=== PATIENT | female | born 1960 | race Two or more races ===

== ENCOUNTER 2017-01-15 13:55 | Inpatient (IN) | payer MEDICAID ==
[~2017-01-15] VITALS: Ht 162.6 cm; Wt 65.0 kg
[2017-01-15] VITALS (9 sets, daily range): BP systolic 147–200; BP diastolic 79–97; PULSE 65–81; RESP 16–18; TEMP 97.3–99; O2SAT 96–100
--- NOTE | 2017-01-15 14:14 | PD ---
HPI Chief Complaint: Neuro Symptoms/ Deficits Time Seen by Provider: 14:01 Travel History International Travel<30 days: No Contact w/Intl Traveler<30days: No Traveled to known affect area: No History of Present Illness HPI The patient was seen and examined in the presence of the nurse. This patient is brought in with her son. He reports that he spoke with her over the phone 5 days ago and noticed that her speech was off, somewhat slurred. They are here visiting from [facility]. Some time today in the last 7 hours she had a worsening. She is now aphasic. Blood pressure 208/99. Unable to provide any history or review of systems. [facility] Social History Alcohol Use: No Tobacco Use: No Substance Use: No Allergies-Medications (Allergen,Severity, Reaction): Coded Allergies: No Known Allergies (Unverified , 01/15/17) Reported Meds & Prescriptions Reported Meds & Active Scripts Active No Active Prescriptions or Reported Medications Review of Systems ROS Limitations: Clinical Condition, Altered Mental Status, Poor Historian Physical Exam Narrative GENERAL: Well-nourished, well-developed patient with confusion and aphasia. Trinidadian speaking only, formal interpretation program used and her son is fluent in Trinidadian and Scottish at bedside. SKIN: Focused skin assessment reveals no rash and nodules. Skin is Warm and dry. HEAD: Atraumatic. Normocephalic. EYES: Pupils equal and round. No scleral icterus. No injection or drainage. ENT: No nasal bleeding or discharge. Mucous membranes pink and moist. NECK: Trachea midline. No JVD. CARDIOVASCULAR: Regular rate and rhythm. No murmur appreciated. RESPIRATORY: No accessory muscle use. Clear to auscultation. Breath sounds equal bilaterally. GASTROINTESTINAL: Abdomen soft, non-tender, nondistended. Hepatic and splenic margins not palpable. MUSCULOSKELETAL: No obvious deformities. No clubbing. No cyanosis. No edema. NEUROLOGICAL: Awake and looking around. She follows commands. No obvious cranial nerve deficits. I don't see any facial droop. She is aphasic. She moves all 4 extremities but difficult to get accurate motor strength and sensory assessments given her limited participation. PSYCHIATRIC: Appropriate mood and affect; insight and judgment seems reduced. Data Data Last Documented VS Vital Signs Date Time Temp Pulse Resp B/P Pulse Ox O2 Delivery O2 Flow Rate FiO2 01/15/17 14:00 99.0 81 18 200/97 100 Orders Electrocardiogram (4/28/17 14:07) Prothrombin Time / Inr (Pt) (01/15/17 14:07) Act Partial Throm Time (Ptt) (01/15/17 14:07) Complete Blood Count With Diff (01/15/17 14:07) Basic Metabolic Panel (Bmp) (01/15/17 14:07) Ct Brain W/O Iv Contrast(Rout) (01/15/17 14:07) Ecg Monitoring (01/15/17 14:07) Iv Access Insert/Monitor (01/15/17 14:07) Oximetry (01/15/17 14:07) Blood Glucose (01/15/17 14:07) Labetalol Inj (Trandate Inj) (01/15/17 14:45) Labs Laboratory Tests Test 01/15/17 14:15 White Blood Count 12.8 TH/MM3 Red Blood Count 5.52 MIL/MM3 Hemoglobin 15.6 GM/DL Hematocrit 48.6 % Mean Corpuscular Volume 87.9 FL Mean Corpuscular Hemoglobin 28.2 PG Mean Corpuscular Hemoglobin 32.1 % Concent Red Cell Distribution Width 14.0 % Platelet Count 358 TH/MM3 Mean Platelet Volume 7.9 FL Neutrophils (%) (Auto) 74.5 % Lymphocytes (%) (Auto) 19.0 % Monocytes (%) (Auto) 5.6 % Eosinophils (%) (Auto) 0.4 % Basophils (%) (Auto) 0.5 % Neutrophils # (Auto) 9.5 TH/MM3 Lymphocytes # (Auto) 2.4 TH/MM3 Monocytes # (Auto) 0.7 TH/MM3 Eosinophils # (Auto) 0.1 TH/MM3 Basophils # (Auto) 0.1 TH/MM3 CBC Comment DIFF FINAL Differential Comment Prothrombin Time 10.8 SEC Prothromb Time International 1.0 RATIO Ratio Activated Partial 28.5 SEC Thromboplast Time Sodium Level 140 MEQ/L Potassium Level 3.4 MEQ/L Chloride Level 104 MEQ/L Carbon Dioxide Level 25.8 MEQ/L Anion Gap 10 MEQ/L Blood Urea Nitrogen 5 MG/DL Creatinine 0.76 MG/DL Estimat Glomerular Filtration 78 ML/MIN Rate Random Glucose 101 MG/DL Calcium Level 9.3 MG/DL MDM Medical Decision Making Medical Screen Exam Complete: Yes Emergency Medical Condition: Yes Medical Record Reviewed: Yes Differential Diagnosis Ischemic stroke, intracranial hemorrhage, hypertensive emergency Narrative Course I have reviewed the patient's electronic medical record. Patient is critically ill with extreme hypertension and signs and symptoms suggesting acute/subacute stroke. Patient is not a stroke alert, there is no accurate timeframe here. Seems like symptoms started 5 days ago. Blood pressure is 208/99 Will use permissive hypertension at this time unless the systolic pressure exceeds 220, which time will be treated. I am concerned about ischemic stroke primarily. Brain CT shows large area of subacute ischemic stroke in the territory of the left MCA, suggesting embolic phenomenon. I reviewed with radiologist Dr. Mccabe I reviewed her EKG which shows sinus tachycardia without ectopy Extended cardiac monitoring reveals sinus tachycardia without ectopy CBC is normal Metabolic profile is normal Coagulation studies are normal Given that this looks now subacute in nature, I gave her 10 mg IV labetalol I reviewed with hospitalist who has admitted the patient Critical Care Narrative Aggregate critical care time was 40 minutes. Time to perform other separately billable procedures was not included in the critical care time. My time did not include minutes spent treating any other patients simultaneously or on activities that did not directly contribute to the patient's treatment. The services I provided to this patient were to treat and/or prevent clinically significant deterioration that could result in: Permanent neurologic deficit, brain stem herniation, cardiopulmonary arrest I provided critical care services requiring my management, as noted below: Chart data review, documentation time, medication orders and management, vital sign assessments/reviewing monitor data, ordering and reviewing lab tests, ordering and interpreting/reviewing x-rays and diagnostic studies, care of the patient and discussion of the patient with the admitting physicians. Diagnosis Primary Impression: Ischemic cerebrovascular accident (CVA) of frontal lobe Additional Impression: Hypertensive urgency Admitting Information Admitting Physician Requests: Admit Scripts No Active Prescriptions or Reported Meds Parrish Perez MD Jan 15, 2017 14:14
[2017-01-15 14:26] LABS: AUTOMATED NEUTROPHIL # 9.5 TH/MM3 (1.8-7.7); BASOPHIL # 0.1 TH/MM3 (0-0.2); BASOPHIL % 0.5 % (0.0-2.0); EOSINOPHIL # 0.1 TH/MM3 (0-0.4); EOSINOPHIL % 0.4 % (0.0-4.0); HEMATOCRIT 48.6 % (35.0-46.0); HEMO FLAGS DIFF FINAL; LYMPHOCYTE # 2.4 TH/MM3 (1.0-4.8); MEAN CELL VOLUME 87.9 FL (80.0-100.0); MEAN CORPUSCULAR HEMOGLOBIN 28.2 PG (27.0-34.0); MEAN CORPUSCULAR HGB CONC 32.1 % (32.0-36.0); MONO % 5.6 % (0.0-8.0); NEUT % 74.5 % (16.0-70.0); PLATELET COUNT 358 TH/MM3 (150-450); RED BLOOD COUNT 5.52 MIL/MM3 (4.00-5.30); WHITE BLOOD COUNT 12.8 TH/MM3 (4.0-11.0)
[2017-01-15 14:36] LABS: POTASSIUM 3.4 MEQ/L (3.5-5.1)
[2017-01-15 14:39] LABS: BICARBONATE 25.8 MEQ/L (21.0-32.0)
[2017-01-15 14:42] LABS: APTT (PATIENT) 28.5 SEC (24.3-30.1); PROTHROMBIN TIME - PATIENT 10.8 SEC (9.8-11.6)
--- NOTE | 2017-01-15 14:44 | RADHPO ---
EXAM DATE/TIME: 01/15/2017 14:16 [facility] COMPARISON: No previous studies available for comparison. INDICATIONS : Cerebrovascular accident. Aphasic. Right arm weakness. RADIATION DOSE: 65.22 CTDIvol (mGy) MEDICAL HISTORY : Non-responsive. SURGICAL HISTORY : Non-responsive. ENCOUNTER: Initial ACUITY: 4 - 6 days PAIN SCALE: Non-responsive LOCATION: cranial TECHNIQUE: Multiple contiguous axial images were obtained of the head. Using automated exposure control and adj ustment of the mA and/or kV according to patient size, radiation dose was kept as low as reasonably a chievable to obtain optimal diagnostic quality images. FINDINGS: CEREBRUM: The ventricles are normal for age. Scattered areas of encephalomalacia in the left MCA territory sug gesting prior left MCA embolic event. No midline shift. No extra-axial fluid collections are seen. POSTERIOR FOSSA: The cerebellum and brainstem are intact. The 4th ventricle is midline. The cerebellopontine angle i s unremarkable. EXTRACRANIAL: The visualized portion of the orbits is intact. SKULL: The calvaria is intact. No evidence of skull fracture. CONCLUSION: 1. Scattered areas of encephalomalacia in the left cerebral hemisphere characteristic of a probable s ubacute or chronic embolic event to the left MCA territory. 2. No acute intracranial hemorrhage or midline shift. 3. Results were called to Dr. Perez in the ED at the time of this dictation Filiberto Mccabe MD on January 15, 2017 at 14:32 Board Certified Radiologist. This report was verified electronically.
[2017-01-15] MEDS ORDERED: LABETALOL HCL 100 MG/20 ML VIAL IV PUSH ONE (14:45)
[2017-01-15] MEDS ORDERED: NALOXONE HCL 0.4 MG/ML AMP IV PRN (15:15)
[2017-01-15] MEDS ORDERED: SODIUM CHLORIDE 0.9% FLUSH 10 ML FLUSH IV FLUSH PRN ×2 (15:15→18:45)
[2017-01-15] MEDS ORDERED: ASPIRIN 325 MG TAB PO ONE (15:30)
[2017-01-15 15:35] LABS: ALT (GPT) 34 U/L (10-53); AST (GOT) 28 U/L (15-37)
[2017-01-15 15:36] LABS: INDIRECT BILIRUBIN 0.4 MG/DL (0.0-0.8); TOTAL BILIRUBIN ADULT 0.5 MG/DL (0.2-1.0)
[2017-01-15 15:38] LABS: ALKALINE PHOSPHATASE 106 U/L (45-117)
[2017-01-15] MEDS ORDERED: POTASSIUM CHLOR 20 MEQ PREMIX 100 ML IV ONE (16:00)
--- NOTE | 2017-01-15 16:00 | HHI.HP ---
[facility] Service [facility] Primary Care Physician Non-Staff Admission Diagnosis ischemic CVA,hypertensive urgency Diagnoses: Chief Complaint: Altered speech Travel History International Travel<30 Days: No Contact w/Intl Traveler <30 Da: No Traveled to Known Affected Are: No History of Present Illness The patient is a 56-year-old female who was brought into the hospital by her family for concerns about altered speech. The patient is visiting from the [facility] for Jeep week. Over the past 5 days the patient has had changes of behavior per the patient's family. It wasn't until this morning that it was obvious that the patient's speech was altered. The family states that the patient was saying weird things and has been having trouble saying what she was meaning to say. The ambulance came by this morning and the patient was refusing treatment. The patient's family states that the patient does not like to be checked up regularly by doctors. The patient was resting in bed but was not very conversant. She would say 1 or 2 words at a time. She did not seem to indicate that she was in any pain. The patient's daughter who was at the bedside was unable to elaborate on the patient's symptoms for the past few days. She does say that other family members noticed the patient acting strangely but was unable to be more specific about that. The patient did seem to indicate she was itching and had a burning sensation in her right hand. Review of Systems ROS Limitations: Clinical Condition, Altered Mental Status, Language Barrier, Speech Impaired, Poor Historian Except as stated in HPI: all other systems reviewed are Neg Past Family Social History Past Medical History Hypertension Past Surgical History Denies Allergies: Coded Allergies: No Known Allergies (Unverified , 01/15/17) Active Ordered Medications Current Medications Medications (Trade) Dose Ordered Sig/Shamika Route Start Time Stop Time Status Last Admin (NS 1000 ml Inj) 1,000 ml @ 75 mls/hr [id number] IV 01/15/17 15:14 (NS Flush) 2 ml UNSCH PRN IV FLUSH 01/15/17 15:15 (NS Flush) 2 ml BID IV FLUSH 01/15/17 21:00 (Tylenol) 650 mg Q4H PRN PO 01/15/17 15:15 (Tylenol) 650 mg Q6H PRN PO 01/15/17 15:15 Naloxone HCl 0.4 mg 0.4 mg UNSCH PRN IV 01/15/17 15:15 (KCl 20 Meq Premix Inj) 100 ml @ 50 mls/hr BOLUS ONCE IV 01/15/17 16:00 01/15/17 17:59 (Ecotrin Ec) 81 mg DAILY PO 01/16/17 09:00 Family History Hypertension Hyperlipidemia Diabetes CAD Cancer Social History The patient smokes 1 pack every day and a half. Her family says she uses recreational cocaine. Physical Exam Vital Signs Vital Signs Date Time Temp Pulse Resp B/P Pulse Ox O2 Delivery O2 Flow Rate FiO2 01/15/17 15:28 65 16 159/84 100 01/15/17 15:28 100 01/15/17 15:10 185/94 01/15/17 14:55 172/95 01/15/17 14:00 99.0 81 18 200/97 100 Physical Exam GENERAL: Well-nourished, well-developed patient with confusion and aphasia. Khmer speaking only. SKIN: Focused skin assessment reveals no rash and nodules. Skin is warm and dry. HEAD: Atraumatic. Normocephalic. EYES: Pupils equal and round. No scleral icterus. No injection or drainage. ENT: No nasal bleeding or discharge. Mucous membranes pink and moist. NECK: Trachea midline. No JVD. CARDIOVASCULAR: Regular rate and rhythm. No murmur appreciated. RESPIRATORY: No accessory muscle use. Clear to auscultation. Breath sounds equal bilaterally. GASTROINTESTINAL: Abdomen soft, non-tender, nondistended. Hepatic and splenic margins not palpable. MUSCULOSKELETAL: No obvious deformities. No clubbing. No cyanosis. No edema. NEUROLOGICAL: Awake and looking around. She follows some commands. No obvious cranial nerve deficits. No facial droop. She is aphasic. RUE 2/5 strength, other extremities 5/5 strength. PSYCHIATRIC: Flattened affect. Laboratory Laboratory Tests Test 01/15/17 01/15/17 14:15 15:15 White Blood Count 12.8 Red Blood Count 5.52 Hemoglobin 15.6 Hematocrit 48.6 Mean Corpuscular Volume 87.9 Mean Corpuscular Hemoglobin 28.2 Mean Corpuscular Hemoglobin 32.1 Concent Red Cell Distribution Width 14.0 Platelet Count 358 Mean Platelet Volume 7.9 Neutrophils (%) (Auto) 74.5 Lymphocytes (%) (Auto) 19.0 Monocytes (%) (Auto) 5.6 Eosinophils (%) (Auto) 0.4 Basophils (%) (Auto) 0.5 Neutrophils # (Auto) 9.5 Lymphocytes # (Auto) 2.4 Monocytes # (Auto) 0.7 Eosinophils # (Auto) 0.1 Basophils # (Auto) 0.1 CBC Comment DIFF FINAL Differential Comment Prothrombin Time 10.8 Prothromb Time International 1.0 Ratio Activated Partial 28.5 Thromboplast Time Sodium Level 140 Potassium Level 3.4 Chloride Level 104 Carbon Dioxide Level 25.8 Anion Gap 10 Blood Urea Nitrogen 5 Creatinine 0.76 Estimat Glomerular Filtration 78 Rate Random Glucose 101 Calcium Level 9.3 Total Bilirubin 0.5 Direct Bilirubin 0.1 Indirect Bilirubin 0.4 Aspartate Amino Transf 28 (AST/SGOT) Alanine Aminotransferase 34 (ALT/SGPT) Alkaline Phosphatase 106 Total Protein 8.2 Albumin 4.0 Thyroid Stimulating Hormone 0.488 3rd Gen Result Diagram: 01/15/17 1415 01/15/17 1415 Imaging Last Impressions Head CT 01/15/17 1407 Signed Impressions: Service Date/Time: Sunday, January 15, 2017 14:16 - CONCLUSION: 1. Scattered areas of encephalomalacia in the left cerebral hemisphere characteristic of a probable subacute or chronic embolic event to the left MCA territory. 2. No acute intracranial hemorrhage or midline shift. 3. Results were called to Dr. Perez in the ED at the time of this dictation Filiberto Mccabe MD Assessment and Plan Assessment and Plan Acute CVA/ Hypertensive Emergency The patient presented to the hospital with speech difficulties and right upper extremity weakness. CT scan in the emergency department showed: Scattered areas of encephalomalacia in the left cerebral hemisphere characteristic of a probable subacute or chronic embolic event to the left MCA territory; No acute intracranial hemorrhage or midline shift. The pt's SBP was noted to be 200 in the ED. She smokes cigarettes and does use recreational cocaine per family. - Bedrest, IV fluids. - Permissive hypertension for now. Vasotec as needed. - Smoking cessation instruction. - Echo, carotid Doppler, Holter monitor pending. - Neurology consult requested. - Check B12, ammonia, lipid profile and hemoglobin A1c. - PT/ OT/ ST. NPO for now. - case management consult. - start aspirin. Leukocytosis May be a stress reaction secondary to above. - Check a UA and chest x-ray to rule out infection. - Follow CBC. Hypokalemia Likely secondary to decreased by mouth intake. - Replete and monitor. PPx: SCDs. Code Status Full. Discussed Condition With Dr. Perez Physician Certification 2 Midnight Certification Type: Admission for Inpatient Services Order for Inpatient Services The services are ordered in accordance with Medicare regulations or non- Medicare payer requirements, as applicable. In the case of services not specified as inpatient-only, they are appropriately provided as inpatient services in accordance with the 2-midnight benchmark. Estimated LOS (days): 2 days is the estimated time the patient will need to remain in the hospital, assuming treatment plan goals are met and no additional complications. Post-Hospital Plan: Not yet determined Mustapha Paul DO Jan 15, 2017 16:00
[2017-01-15 16:47] LABS: GLUCOSE,URINE NEG (NEG); KETONE, URINE TRACE mg/dL (NEG); NITRITE,URINE NEG (NEG); PH, URINE 5.5 (5.0-8.5)
[2017-01-15 16:52] LABS: BLOOD, URINE MOD (NEG); METHOD OF COLLECTION CLEAN CATCH; URINE COLOR STRAW (YELLW/STRAW)
[2017-01-15 16:53] LABS: COMMENT (UR) CULT NOT INDICATED; CULTURE IF INDICATED CULT NOT INDICATED; SQUAMOUS EPITHELIAL CELL URINE 0-5 /hpf (0-5); WBC, URINE 0-2 /hpf (0-5)
[2017-01-15 16:55] LABS: AMPHETAMINE, URINE NEG (NEG); BARBITURATES, URINE NEG (NEG); COCAINE, URINE NEG (NEG)
--- NOTE | 2017-01-15 16:56 | RADHPO ---
EXAM DATE/TIME: 01/15/2017 16:50 [facility] COMPARISON: No previous studies available for comparison. INDICATIONS : Shortness of breath. MEDICAL HISTORY : None. SURGICAL HISTORY : None. ENCOUNTER: Initial ACUITY: 4 - 6 days PAIN SCORE: 1/10 LOCATION: Bilateral chest FINDINGS: A single view of the chest demonstrates the lungs to be symmetrically aerated without evidence of mas s, infiltrate or effusion. The cardiomediastinal contours are unremarkable. Osseous structures are intact. CONCLUSION: No acute disease. Mustapha Schmidt MD on January 15, 2017 at 16:53 Board Certified Radiologist. This report was verified electronically.
[2017-01-15] MEDS: SODIUM CHLOR 0.9% 1000 ML INJ 1,000 ML IV SCH (17:11)
--- NOTE | 2017-01-15 17:46 | RADHPO ---
EXAM DATE/TIME: 01/15/2017 17:12 [facility] COMPARISON: No previous studies available for comparison. INDICATIONS : Cerebrovascular accident. MEDICAL HISTORY : Hypertension. CVA. SURGICAL HISTORY : None. ENCOUNTER: Initial ACUITY: 4-6 days PAIN SCORE: 4/10 LOCATION: Bilateral neck PEAK SYSTOLIC VELOCITIES (cm/sec): ICA/CCA RATIO: Right: 1.5 Left: 0.7 ICA: Right: 114 Left: 57 CCA: Right: 77 Left: 79 ECA: Right: 63 Left: 66 VERTEBRAL: Right: 44 antegrade Left: 50 antegrade Elevated flow velocities and ICA/CCA ratios have been found to correlate with increased degrees of vessel stenosis, calculated as percentage of diameter relative to a normal segment of distal ICA/CCA FINDINGS: Ultrasound of the carotid arteries was performed bilaterally using real-time Doppler and color Dopple r imaging. Examination of the right carotid artery demonstrates mild fibrous plaque within the bifurcation. No w aveform abnormalities are identified and no spectral broadening is seen. Examination of the left phipps tid artery demonstrates mild fibrous plaque within the bulb. No waveform abnormalities are identified and no spectral broadening is seen. There is antegrade flow in both vertebral arteries. CONCLUSION: No evidence of hemodynamically significant lesion. Js Cabrera MD on January 15, 2017 at 17:43 Board Certified Radiologist. This report was verified electronically.
[2017-01-15 18:16] LABS: HDL CHOLESTEROL 49.1 MG/DL (40.0-60.0); LDL CHOLESTEROL 118 MG/DL (0-99)
[2017-01-15] MEDS ORDERED: DEXTROSE 50% IN WATER 50 ML VIAL(D50) IV PUSH PRN (18:45)
[2017-01-15] MEDS ORDERED: GLUCAGON 1 MG/ML VIAL IM/SQ PRN (18:45)
[2017-01-15] MEDS: SODIUM CHLORIDE 0.9% FLUSH 10 ML FLUSH IV FLUSH SCH (20:00)
[2017-01-15] MEDS: ASPIRIN 325 MG TAB PO SCH (20:00)
[2017-01-15] MEDS: ATORVASTATIN 10 MG TAB PO SCH (20:00)
[2017-01-15] MEDS: INSULIN ASPART SUPPLEMENTAL SCALE SQ SCH (20:07)
[2017-01-15] MEDS ORDERED: SODIUM CHLORIDE 0.9% FLUSH 10 ML FLUSH IV FLUSH SCH (21:00)
--- NOTE | 2017-01-15 21:17 | MB ---
cc: HERLINDA MICHELLE DATE OF CONSULTATION 01/15/17 REASON FOR CONSULTATION Stroke HISTORY OF PRESENT ILLNESS Ms. Gordon is a 56-year-old female previously in good health until Wednesday when she had developed difficulty getting words out which progressed and she therefore came to the emergency room. She has been weak on the right side as well. There has been no loss of consciousness. PAST MEDICAL HISTORY Hypertension MEDICATIONS At home none. ALLERGIES None known. NEUROLOGIC EXAMINATION VITAL SIGNS: Blood pressure 147/92, pulse 67, respiratory rate is 18, temperature 97 degrees. Higher cortical function - primary language is Mozambican. This is done through her friend. She is not able to communicate even in Mozambican. She cannot get words out. 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 On motor exam, she has mild weakness of the right arm and right leg rated at 4/5 proximally and distally. There was normal strength on the left. Reflexes are 2+ symmetric. There is no Babinski present. IMAGING STUDIES CT of the brain is reviewed showing multiple areas of low density in the left cerebral hemisphere suggesting stroke. There is no mass effect. No evidence of any hemorrhage. Carotid ultrasound is within normal limits with no significant stenosis. LABORATORY DATA White count 12,800, hemoglobin 15.6, hematocrit 48%, platelets are 358,000. Sodium is 140, potassium 3.4, chloride 104, CO2 25.8, BUN is five, creatinine 0.76, GFR 78, glucose is 101, LDL 118, HDL 49.1 triglycerides 144. Tox screen negative. CARDIOLOGY STUDIES Her EKG shows a normal sinus rhythm. IMPRESSION Several left hemisphere strokes with expressive aphasia and right hemiparesis. RECOMMENDATIONS Would recommend placing the patient on aspirin 325 mg daily. We will obtain further evaluation with an MRI MRA of the brain, echocardiogram, also suggest statin given the elevated LDL. Recommend rehab medicine consult as well. Monitor the telemetry to rule out atrial fibrillation. MD JONNY Darnell/ /6:44 PM /9:04 PM
[2017-01-16] VITALS (8 sets, daily range): BP systolic 141–196; BP diastolic 75–94; PULSE 59–74; RESP 14–20; TEMP 96.9–98.9; O2SAT 95–99
[2017-01-16] MEDS: INSULIN ASPART SUPPLEMENTAL SCALE SQ SCH ×4 (06:10→20:40)
[2017-01-16] MEDS: SODIUM CHLOR 0.9% 1000 ML INJ 1,000 ML IV SCH (06:10)
[2017-01-16] MEDS: ACETAMINOPHEN 325 MG TAB PO PRN ×2 (06:44→20:23)
[2017-01-16 07:26] LABS: AUTOMATED NEUTROPHIL # 6.2 TH/MM3 (1.8-7.7); BASOPHIL # 0.1 TH/MM3 (0-0.2); EOSINOPHIL # 0.1 TH/MM3 (0-0.4); HEMATOCRIT 43.5 % (35.0-46.0); HEMO FLAGS DIFF FINAL; LYMPH % 23.3 % (9.0-44.0); LYMPHOCYTE # 2.2 TH/MM3 (1.0-4.8); MEAN CELL VOLUME 88.4 FL (80.0-100.0); MEAN CORPUSCULAR HEMOGLOBIN 29.3 PG (27.0-34.0); MEAN CORPUSCULAR HGB CONC 33.2 % (32.0-36.0); MONO % 7.6 % (0.0-8.0); NEUT % 67.1 % (16.0-70.0); PLATELET COUNT 305 TH/MM3 (150-450); RED BLOOD COUNT 4.92 MIL/MM3 (4.00-5.30); WHITE BLOOD COUNT 9.3 TH/MM3 (4.0-11.0)
[2017-01-16 07:42] LABS: POTASSIUM 3.5 MEQ/L (3.5-5.1)
[2017-01-16 07:48] LABS: BICARBONATE 25.1 MEQ/L (21.0-32.0); MAGNESIUM 2.3 MG/DL (1.5-2.5)
[2017-01-16] MEDS: ASPIRIN 325 MG TAB PO SCH (08:51)
[2017-01-16] MEDS: SODIUM CHLORIDE 0.9% FLUSH 10 ML FLUSH IV FLUSH SCH ×2 (08:52→20:40)
[2017-01-16] MEDS ORDERED: ASPIRIN EC 81 MG TABEC PO SCH (09:00)
[2017-01-16] MEDS ORDERED: POTASSIUM CHLORIDE 25 MEQ EFFERVESCENT TAB PO ONE (09:30)
[2017-01-16] MEDS ORDERED: SODIUM CHLOR 0.45% 1000 ML INJ 1,000 ML IV SCH (09:30)
--- NOTE | 2017-01-16 09:43 | HHI.PR ---
Subjective Remarks The patient did not complain of any pain. She was able to move her right arm better this morning. She denied any headache. She denied any numbness or tingling. Family was at the bedside. Their questions were answered. Case management was also present. Objective Vitals Vital Signs Date Time Temp Pulse Resp B/P Pulse Ox O2 Delivery O2 Flow Rate FiO2 01/16/17 08:00 97.4 59 17 162/93 97 01/16/17 04:11 98.9 70 18 141/79 99 01/16/17 00:28 98.8 68 20 147/80 98 01/15/17 20:42 98.9 73 16 148/79 96 01/15/17 20:03 96 21 01/15/17 19:58 74 01/15/17 16:57 97.3 67 18 147/92 98 01/15/17 16:00 65 01/15/17 15:28 65 16 159/84 100 01/15/17 15:28 100 01/15/17 15:10 185/94 01/15/17 14:55 172/95 01/15/17 14:00 99.0 81 18 200/97 100 I/O 01/15/17 01/15/17 01/15/17 01/16/17 01/16/17 01/16/17 07:00 15:00 23:00 07:00 15:00 23:00 Intake Total 427 ml 610 ml Output Total 200 ml Balance 427 ml 410 ml Intake IV Total 427 ml 610 ml Output Urine Total 200 ml Result Diagram: 01/16/17 0609 01/16/17 0609 Imaging Last Impressions Head CT 01/15/17 1407 Signed Impressions: Service Date/Time: Sunday, January 15, 2017 14:16 - CONCLUSION: 1. Scattered areas of encephalomalacia in the left cerebral hemisphere characteristic of a probable subacute or chronic embolic event to the left MCA territory. 2. No acute intracranial hemorrhage or midline shift. 3. Results were called to Dr. Perez in the ED at the time of this dictation Filiberto Mccabe MD Chest X-Ray 01/15/17 0000 Signed Impressions: Service Date/Time: Sunday, January 15, 2017 16:50 - CONCLUSION: No acute disease. Mustapha Schmidt MD Carotid Artery Ultrasound 01/15/17 0000 Signed Impressions: Service Date/Time: Sunday, January 15, 2017 17:12 - CONCLUSION: No evidence of hemodynamically significant lesion. Js Cabrera MD Objective Remarks GENERAL: Well-nourished, well-developed patient with confusion and aphasia. [place] speaking only. SKIN: Focused skin assessment reveals no rash and nodules. Skin is warm and dry. HEAD: Atraumatic. Normocephalic. EYES: Pupils equal and round. No scleral icterus. No injection or drainage. ENT: No nasal bleeding or discharge. Mucous membranes pink and moist. NECK: Trachea midline. No JVD. CARDIOVASCULAR: Regular rate and rhythm. No murmur appreciated. RESPIRATORY: No accessory muscle use. Clear to auscultation. Breath sounds equal bilaterally. GASTROINTESTINAL: Abdomen soft, non-tender, nondistended. Hepatic and splenic margins not palpable. MUSCULOSKELETAL: No obvious deformities. No clubbing. No cyanosis. No edema. NEUROLOGICAL: Awake and looking around. She follows some commands. No obvious cranial nerve deficits. No facial droop. She is aphasic. RUE 4/5 strength, other extremities 5/5 strength. PSYCHIATRIC: Flattened affect. Medications and IVs Current Medications Medications (Trade) Dose Ordered Sig/Shamika Route Start Time Stop Time Status Last Admin (Tylenol) 650 mg Q4H PRN PO 01/15/17 15:15 (Tylenol) 650 mg Q6H PRN PO 01/15/17 15:15 01/16/17 06:44 (Narcan Inj) 0.4 mg UNSCH PRN IV 01/15/17 15:15 (NS Flush) 2 ml BID IV FLUSH 01/15/17 21:00 (NS Flush) 2 ml UNSCH PRN IV FLUSH 01/15/17 18:45 (Aspirin) 325 mg DAILY PO 01/15/17 19:00 01/16/17 08:51 (Lipitor) 10 mg HS PO 01/15/17 21:00 01/15/17 20:00 (D50w (Vial) Inj) 25 ml UNSCH PRN IV PUSH 01/15/17 18:45 Glucagon 1 mg 1 mg UNSCH PRN IM/SQ 01/15/17 18:45 (1/2 NS 1000 ml Inj) 1,000 ml @ 75 mls/hr [id number] IV 01/16/17 09:30 01/16/17 22:49 A/P Assessment and Plan Acute CVA/ Hypertensive Emergency The patient presented to the hospital with speech difficulties and right upper extremity weakness. CT scan in the emergency department showed: Scattered areas of encephalomalacia in the left cerebral hemisphere characteristic of a probable subacute or chronic embolic event to the left MCA territory; No acute intracranial hemorrhage or midline shift. The pt's SBP was noted to be 200 in the ED. She smokes cigarettes and does use recreational cocaine per family. LDL 118. Carotid US unremarkable. Neurology consult appreciated. - Bedrest, IV fluids. - Permissive hypertension for now. Vasotec as needed. - Smoking cessation instruction. - Echo, Holter monitor pending. - Check B12 and hemoglobin A1c. - PT/ OT/ ST. - case management consult. - start aspirin and statin. - MRIs per neurology. - rehab medicine consult. Leukocytosis May be a stress reaction secondary to above. CXR and UA unremarkable. Resolved. - Follow CBC as needed. Hypokalemia Likely secondary to decreased by mouth intake. - Replete and monitor. Hypernatremia Sodium level increased. - change fluids to 1/2 normal saline and monitor. PPx: SCDs. Discharge Planning Awaiting clinical improvement. Mustapha Paul DO Jan 16, 2017 09:43
--- NOTE | 2017-01-16 12:53 | RADHPO ---
EXAM DATE/TIME: 01/16/2017 12:23 [facility] COMPARISON: MRI BRAIN W/O CONTRAST, January 16, 2017, 12:23. CT BRAIN W/O CONTRAST, January 15, 2017, 14:16. INDICATIONS : CVA. MEDICAL HISTORY : Hypertension. SURGICAL HISTORY : None. ENCOUNTER: Initial ACUITY: 1 day PAIN SCORE: 0/10 LOCATION: cranial Please note a normal MRA of the brain does not entirely exclude the possibility of a small aneurysm, nor the possibility of distal intracranial vessel disease. TECHNIQUE: 3D time of flight MRA was performed. Source images, multiplanar STS MIP, and 3D volume MIP reconstru ctions were reviewed. FINDINGS: The left middle cerebral artery is occluded distal to the M1 segment proximal to the bifurcation. A f etal right posterior cerebral artery is noted. The vertebral arteries, basilar arteries, posterior ce rebral arteries, superior cerebellar arteries, internal carotid arteries, anterior cerebral arteries and right middle cerebral artery are widely patent. CONCLUSION: 1. Left MCA occlusion. Rich Esquivel MD on January 16, 2017 at 12:49 Board Certified Radiologist. This report was verified electronically.
--- NOTE | 2017-01-16 12:54 | RADHPO ---
EXAM DATE/TIME: 01/16/2017 12:23 [facility] COMPARISON: MRA BRAIN W/O CONTRAST, January 16, 2017, 12:23. CT BRAIN W/O CONTRAST, January 15, 2017, 14:16. INDICATIONS : CVA. MEDICAL HISTORY : Hypertension. SURGICAL HISTORY : None. ENCOUNTER: Initial ACUITY: 1 day PAIN SCORE: 0/10 LOCATION: cranial TECHNIQUE: Multiplanar, multisequence MRI of the brain was performed without contrast. FINDINGS: There is a large area of restricted diffusion involving the left frontal, parietal, occipital and tem poral regions consistent with acute to subacute left MCA territory infarct. There is cytotoxic edema. No midline shift identified. No hemorrhage. CONCLUSION: 1. Evolving left as noted above. No hemorrhage or midline shift appreciated. Rich Esquivel MD on January 16, 2017 at 12:51 Board Certified Radiologist. This report was verified electronically.
--- NOTE | 2017-01-16 19:26 | EKG ---
Date Performed: 01/15/2017 Time Performed: 14:42:26 PTAGE: 56 years EKG: Sinus rhythm Normal ECG NO PREVIOUS TRACING DOCTOR: Lotus Smith Interpretating Date/Time 01/16/2017 19:25:19
[2017-01-16] MEDS: ATORVASTATIN 10 MG TAB PO SCH (20:22)
--- NOTE | 2017-01-16 20:36 | HHI.PR ---
Review/Management Diagnosis left MCA stroke increase LDL Plan continue asa monitor cardiac telemetry to r/o afib. check echocardiogram hypercoagulable state PT/OT/speech therapy Diagnosis/Plan: Subjective Subjective Comments No acute events reported speech may be slightly improved Active Medications Current Medications Medications (Trade) Dose Ordered Sig/Shamika Route Start Time Stop Time Status Last Admin (Tylenol) 650 mg Q4H PRN PO 01/15/17 15:15 01/16/17 20:23 (Tylenol) 650 mg Q6H PRN PO 01/15/17 15:15 01/16/17 06:44 (Narcan Inj) 0.4 mg UNSCH PRN IV 01/15/17 15:15 (NS Flush) 2 ml BID IV FLUSH 01/15/17 21:00 (NS Flush) 2 ml UNSCH PRN IV FLUSH 01/15/17 18:45 (Aspirin) 325 mg DAILY PO 01/15/17 19:00 01/16/17 08:51 (Lipitor) 10 mg HS PO 01/15/17 21:00 01/16/17 20:22 (D50w (Vial) Inj) 25 ml UNSCH PRN IV PUSH 01/15/17 18:45 Glucagon 1 mg 1 mg UNSCH PRN IM/SQ 01/15/17 18:45 (1/2 NS 1000 ml Inj) 1,000 ml @ 75 mls/hr [id number] IV 01/16/17 09:30 01/16/17 22:49 01/16/17 09:30 Allergies Allergies Coded Allergies No Known Allergies (Unverified01/15/17) Exam I&O / VS 01/15/17 01/15/17 01/16/17 15:00 23:00 07:00 Intake Total 427 ml 610 ml Output Total 200 ml Balance 427 ml 410 ml Intake IV Total 427 ml 610 ml Output Urine Total 200 ml Vital Signs Date Time Temp Pulse Resp B/P Pulse Ox O2 Delivery O2 Flow Rate FiO2 01/16/17 16:00 97.9 70 19 178/75 95 01/16/17 12:00 97.7 65 18 149/88 98 01/16/17 08:00 74 01/16/17 08:00 97.4 59 17 162/93 97 01/16/17 08:00 96 21 01/16/17 07:44 20 01/16/17 04:11 98.9 70 18 141/79 99 01/16/17 00:28 98.8 68 20 147/80 98 01/15/17 20:42 98.9 73 16 148/79 96 Exam Comments alert, expressive aphasia CN--right umn cn 7 perrl motor 3/5 distal RUE, 4/5 proximal RUE 4/5 RLE Objective Radiology Results MRI--left MCA stroke. MRA--left MCA occlusion carotid US--no significant stenosis Micro and Labs Laboratory Tests Test 01/16/17 06:09 White Blood Count 9.3 Red Blood Count 4.92 Hemoglobin 14.4 Hematocrit 43.5 Mean Corpuscular Volume 88.4 Mean Corpuscular Hemoglobin 29.3 Mean Corpuscular Hemoglobin 33.2 Concent Red Cell Distribution Width 14.0 Platelet Count 305 Mean Platelet Volume 8.6 Neutrophils (%) (Auto) 67.1 Lymphocytes (%) (Auto) 23.3 Monocytes (%) (Auto) 7.6 Eosinophils (%) (Auto) 1.0 Basophils (%) (Auto) 1.0 Neutrophils # (Auto) 6.2 Lymphocytes # (Auto) 2.2 Monocytes # (Auto) 0.7 Eosinophils # (Auto) 0.1 Basophils # (Auto) 0.1 CBC Comment DIFF FINAL Differential Comment Sodium Level 146 Potassium Level 3.5 Chloride Level 108 Carbon Dioxide Level 25.1 Anion Gap 13 Blood Urea Nitrogen 5 Creatinine 0.68 Estimat Glomerular Filtration 89 Rate Random Glucose 89 Calcium Level 8.4 Phosphorus Level 3.1 Magnesium Level 2.3 Francesco De Los Santos PhD Jan 16, 2017 20:36
[2017-01-16] MEDS ORDERED: ENALAPRILAT 1.25 MG/ML VIAL IV PUSH PRN (21:30)
[2017-01-17] MEDS: ACETAMINOPHEN 325 MG TAB PO PRN ×3 (00:04→12:05)
[2017-01-17 00:42] VITALS: BP 188/93; PULSE 63; RESP 14; TEMP 96.2; O2SAT 92
[2017-01-17 04:16] VITALS: BP 171/87; PULSE 58; RESP 14; TEMP 97.8; O2SAT 96
[2017-01-17] MEDS: INSULIN ASPART SUPPLEMENTAL SCALE SQ SCH ×4 (07:00→20:47)
[2017-01-17 07:37] LABS: POTASSIUM 3.6 MEQ/L (3.5-5.1)
[2017-01-17 07:42] LABS: BICARBONATE 27.2 MEQ/L (21.0-32.0); MAGNESIUM 2.2 MG/DL (1.5-2.5)
[2017-01-17 08:00] VITALS: BP 165/104; PULSE 59; PULSE 75; RESP 18; TEMP 97.6; O2SAT 95
[2017-01-17] MEDS: SODIUM CHLORIDE 0.9% FLUSH 10 ML FLUSH IV FLUSH SCH ×2 (08:56→20:52)
[2017-01-17] MEDS: ASPIRIN 325 MG TAB PO SCH (08:57)
[2017-01-17] MEDS: LISINOPRIL 20 MG TAB PO SCH (09:10)
[2017-01-17] MEDS: ENOXAPARIN SODIUM 40 MG/0.4 ML SYRINGE SQ SCH (09:10)
[2017-01-17 10:51] LABS: HEMOGLOBIN A1b 1.7 %; HEMOGLOBIN Ao 86.3 %; HEMOGLOBIN LA1C 1.5 %; HEMOGLOBIN P3 3.5 %
[2017-01-17 12:00] VITALS: BP 154/98; PULSE 62; RESP 18; TEMP 97.7; O2SAT 96
--- NOTE | 2017-01-17 12:22 | HHI.PR ---
Subjective Remarks The patient was resting comfortably. Her family was at the bedside. They stated that the patient was talking more and doing better. She had no acute complaints. Objective Vitals Vital Signs Date Time Temp Pulse Resp B/P Pulse Ox O2 Delivery O2 Flow Rate FiO2 01/17/17 08:00 75 01/17/17 08:00 97.6 59 18 165/104 95 01/17/17 04:16 97.8 58 14 171/87 96 01/17/17 00:42 96.2 63 14 188/93 92 01/16/17 20:34 96.9 68 14 196/94 98 01/16/17 20:00 73 01/16/17 20:00 74 01/16/17 19:20 95 21 01/16/17 16:00 97.9 70 19 178/75 95 I/O 01/16/17 01/16/17 01/16/17 01/17/17 01/17/17 01/17/17 07:00 15:00 23:00 07:00 15:00 23:00 Intake Total 610 ml Output Total 200 ml 6200 ml 2500 ml Balance 410 ml -6200 ml -2500 ml Intake IV Total 610 ml Output Urine Total 200 ml 6200 ml 2500 ml # Voids 1 Result Diagram: 01/16/17 0609 01/17/17 0622 Imaging Last Impressions Head Magnetic Resonance Angiography 01/16/17 0000 Signed Impressions: Service Date/Time: Monday, January 16, 2017 12:23 - CONCLUSION: 1. Left MCA occlusion. Rich Esquivel MD Brain MRI 01/16/17 0000 Signed Impressions: Service Date/Time: Monday, January 16, 2017 12:23 - CONCLUSION: 1. Evolving left as noted above. No hemorrhage or midline shift appreciated. Rich Esquivel MD Head CT 01/15/17 1407 Signed Impressions: Service Date/Time: Sunday, January 15, 2017 14:16 - CONCLUSION: 1. Scattered areas of encephalomalacia in the left cerebral hemisphere characteristic of a probable subacute or chronic embolic event to the left MCA territory. 2. No acute intracranial hemorrhage or midline shift. 3. Results were called to Dr. Perez in the ED at the time of this dictation Filiberto Mccabe MD Chest X-Ray 4/28/17 0000 Signed Impressions: Service Date/Time: Sunday, January 15, 2017 16:50 - CONCLUSION: No acute disease. Mustapha Schmidt MD Carotid Artery Ultrasound 01/15/17 0000 Signed Impressions: Service Date/Time: Sunday, January 15, 2017 17:12 - CONCLUSION: No evidence of hemodynamically significant lesion. Js Cabrera MD Objective Remarks GENERAL: Well-nourished, well-developed patient in [facility]. SKIN: Focused skin assessment reveals no rash and nodules. Skin is warm and dry. HEAD: Atraumatic. Normocephalic. EYES: Pupils equal and round. No scleral icterus. No injection or drainage. ENT: No nasal bleeding or discharge. Mucous membranes pink and moist. NECK: Trachea midline. No JVD. CARDIOVASCULAR: Regular rate and rhythm. No murmur appreciated. RESPIRATORY: No accessory muscle use. Clear to auscultation. Breath sounds equal bilaterally. GASTROINTESTINAL: Abdomen soft, non-tender, nondistended. Hepatic and splenic margins not palpable. MUSCULOSKELETAL: No obvious deformities. No clubbing. No cyanosis. No edema. NEUROLOGICAL: Awake and looking around. She follows some commands. No obvious cranial nerve deficits. No facial droop. She is aphasic. RUE/ RLE 4/5 strength, other extremities 5/5 strength. Sensation seems intact. PSYCHIATRIC: Mood and affect appropriate. Medications and IVs Current Medications Medications (Trade) Dose Ordered Sig/Shamika Route Start Time Stop Time Status Last Admin (Tylenol) 650 mg Q4H PRN PO 01/15/17 15:15 01/17/17 12:05 (Tylenol) 650 mg Q6H PRN PO 01/15/17 15:15 01/17/17 00:04 (Narcan Inj) 0.4 mg UNSCH PRN IV 01/15/17 15:15 (NS Flush) 2 ml BID IV FLUSH 01/15/17 21:00 (NS Flush) 2 ml UNSCH PRN IV FLUSH 01/15/17 18:45 (Aspirin) 325 mg DAILY PO 01/15/17 19:00 01/17/17 08:57 (Lipitor) 10 mg HS PO 01/15/17 21:00 01/16/17 20:22 (D50w (Vial) Inj) 25 ml UNSCH PRN IV PUSH 01/15/17 18:45 (Glucagon Inj) 1 mg UNSCH PRN IM/SQ 01/15/17 18:45 (Vasotec Inj) 1.25 mg Q6H PRN IV PUSH 01/16/17 21:30 (Lovenox Inj) 40 mg Q24H SQ 01/17/17 09:00 01/17/17 09:10 (Prinivil) 20 mg DAILY PO 01/17/17 09:00 01/17/17 09:10 A/P Assessment and Plan Acute CVA/ Hypertensive Emergency The patient presented to the hospital with speech difficulties and right upper extremity weakness. CT scan in the emergency department showed: Scattered areas of encephalomalacia in the left cerebral hemisphere characteristic of a probable subacute or chronic embolic event to the left MCA territory; No acute intracranial hemorrhage or midline shift. The pt's SBP was noted to be 200 in the ED. She smokes cigarettes and does use recreational cocaine per family. LDL 118. Carotid US unremarkable. Neurology consult appreciated. A1c 5.4%. MRA with left MCA occlusion. - change activity to OOB w/ assist. - start lisinopril 20 mg daily. Vasotec as needed. - Smoking cessation instruction. - Echo, Holter monitor pending. - B12 injection x 1. - PT/ OT/ ST. - case management consult. - started aspirin and statin. - rehab medicine consult. - hypercoagulable work-up per neurology. Leukocytosis May be a stress reaction secondary to above. CXR and UA unremarkable. Resolved. - Follow CBC as needed. Hypokalemia Likely secondary to decreased by mouth intake. - Replete and monitor. Hypernatremia Sodium level increased. - improved with 1/2 normal saline. PPx: Lovenox. Discharge Planning Will need rehab when cleared by neuro. Mustapha Paul DO Jan 17, 2017 12:22
[2017-01-17] MEDS ORDERED: CYANOCOBALAMIN 1000 MCG/ML VIAL IM ONE (13:00)
[2017-01-17] MEDS ORDERED: POTASSIUM CHLORIDE 25 MEQ EFFERVESCENT TAB PO ONE (13:00)
--- NOTE | 2017-01-17 15:42 | HHI.PR ---
Review/Management Diagnosis left MCA stroke increase LDL Plan continue asa monitor cardiac telemetry to r/o afib. check echocardiogram hypercoagulable state PT/OT/speech therapy Diagnosis/Plan: Subjective Subjective Comments No acute events reported Her daughter feels her speech is improving Active Medications Current Medications Medications (Trade) Dose Ordered Sig/Shamika Route Start Time Stop Time Status Last Admin (Tylenol) 650 mg Q4H PRN PO 01/15/17 15:15 01/17/17 12:05 (Tylenol) 650 mg Q6H PRN PO 01/15/17 15:15 01/17/17 00:04 (Narcan Inj) 0.4 mg UNSCH PRN IV 01/15/17 15:15 (NS Flush) 2 ml BID IV FLUSH 01/15/17 21:00 (NS Flush) 2 ml UNSCH PRN IV FLUSH 01/15/17 18:45 (Aspirin) 325 mg DAILY PO 01/15/17 19:00 01/17/17 08:57 (Lipitor) 10 mg HS PO 01/15/17 21:00 01/16/17 20:22 (D50w (Vial) Inj) 25 ml UNSCH PRN IV PUSH 01/15/17 18:45 (Glucagon Inj) 1 mg UNSCH PRN IM/SQ 01/15/17 18:45 (Vasotec Inj) 1.25 mg Q6H PRN IV PUSH 01/16/17 21:30 (Lovenox Inj) 40 mg Q24H SQ 01/17/17 09:00 01/17/17 09:10 (Prinivil) 20 mg DAILY PO 01/17/17 09:00 01/17/17 09:10 (Colace) 100 mg BID PO 01/17/17 21:00 (Senokot) 17.2 mg DAILY PO 01/17/17 15:00 Allergies Allergies Coded Allergies No Known Allergies (Unverified01/15/17) Exam I&O / VS 01/16/17 01/16/17 01/17/17 15:00 23:00 07:00 Output Total 6200 ml 2500 ml Balance -6200 ml -2500 ml Output Urine Total 6200 ml 2500 ml # Voids 1 Vital Signs Date Time Temp Pulse Resp B/P Pulse Ox O2 Delivery O2 Flow Rate FiO2 01/17/17 13:05 20 01/17/17 12:00 97.7 62 18 154/98 96 01/17/17 08:00 75 01/17/17 08:00 97.6 59 18 165/104 95 01/17/17 04:16 97.8 58 14 171/87 96 01/17/17 00:42 96.2 63 14 188/93 92 01/16/17 20:34 96.9 68 14 196/94 98 01/16/17 20:00 73 01/16/17 20:00 74 01/16/17 19:20 95 21 01/16/17 16:00 97.9 70 19 178/75 95 Exam Comments alert, expressive aphasia CN--right umn cn 7 perrl motor 3/5 distal RUE, 4/5 proximal RUE 4/5 RLE Objective Micro and Labs Laboratory Tests Test 01/17/17 06:22 Sodium Level 144 Potassium Level 3.6 Chloride Level 107 Carbon Dioxide Level 27.2 Anion Gap 10 Blood Urea Nitrogen 3 Creatinine 0.73 Estimat Glomerular Filtration 82 Rate Random Glucose 92 Calcium Level 8.2 Magnesium Level 2.2 Francesco De Los Santos PhD MD Jan 17, 2017 15:42
[2017-01-17 16:00] VITALS: BP 151/86; PULSE 70; RESP 17; TEMP 98; O2SAT 97
[2017-01-17] MEDS: SENNOSIDES 8.6 MG TAB PO SCH (17:36)
[2017-01-17 20:00] VITALS: BP 147/83; PULSE 69; RESP 18; TEMP 97.2; O2SAT 95
[2017-01-17] MEDS: ATORVASTATIN 10 MG TAB PO SCH (20:47)
[2017-01-17] MEDS: DOCUSATE SODIUM 100 MG CAP PO SCH (20:47)
--- NOTE | 2017-01-17 22:46 | HM ---
Date Performed: 01/15/2017 Time Performed: 18:28:00 HOOKUP DATE: 01/15/17 06:28:00 PM Fri ANALYSIS START TIME: 01/15/2017 6:33:00 PM ANALYSIS END TIME: 01/16/2017 6:37:00 PM PATIENT AGE: 56 PATIENT HEIGHT: 64 PATIENT WEIGHT: 135 DRUG LIST PATIENT DIAGNOSIS: ISCHEMIC CVA TEST NARRATIVE: The patient's average heart rate was 66 BPM. No episodes of tachycardia wer e noted. No episodes of bradycardia were noted. No pauses exceeding 2.0 seconds were noted. No ventricular ectopics were noted. 8 supraventricular ectopics, which represented < 1% of the to shi beat count, were noted. The highest supraventricular ectopic frequency occurred from 03:00 AM to 04:00 AM Sat. During this time 2 SVE(s) occurred. No episodes of ST depression (defined as -1.0 mm or more) were noted in channel 1. No episodes of ST depression (defined as -1.0 mm or more) were noted in channel 2. No episodes of ST depression (defined as -1.0 mm or more) were noted in channel 3. Monitor was removed from 1200 to 1317 for a stat MRI. No diary events were reported by the patient. TEST INTERPRETATION: Sinus rhythm PACs Signed by : Lotus Smith
[2017-01-18] VITALS: BP 147/80; PULSE 71; RESP 16; TEMP 98.8; O2SAT 94
[2017-01-18 04:00] VITALS: BP 134/76; PULSE 66; RESP 16; TEMP 98.2; O2SAT 95
[2017-01-18] MEDS: INSULIN ASPART SUPPLEMENTAL SCALE SQ SCH ×4 (06:37→21:00)
[2017-01-18 08:00] VITALS: BP 145/84; PULSE 66; RESP 16; TEMP 98.2; O2SAT 95
[2017-01-18] MEDS: ENOXAPARIN SODIUM 40 MG/0.4 ML SYRINGE SQ SCH (08:59)
[2017-01-18] MEDS: ASPIRIN 325 MG TAB PO SCH (08:59)
[2017-01-18] MEDS: SENNOSIDES 8.6 MG TAB PO SCH (09:00)
[2017-01-18] MEDS: LISINOPRIL 20 MG TAB PO SCH (09:00)
[2017-01-18] MEDS: SODIUM CHLORIDE 0.9% FLUSH 10 ML FLUSH IV FLUSH SCH ×2 (09:00→21:00)
[2017-01-18] MEDS: DOCUSATE SODIUM 100 MG CAP PO SCH ×2 (09:00→21:00)
--- NOTE | 2017-01-18 09:35 | EC ---
Study Study Date:01/16/2017 STUDY CONCLUSIONS SUMMARY - Left ventricle: The cavity size was normal. Wall thickness was normal. Systolic function was normal. The estimated ejection fraction was in the range of 55% to 60%. Wall motion was normal; there were no regional wall motion abnormalities. - Pulmonary arteries: PA peak pressure: 40mm Hg (S). Impressions: No cardiac source of emboli was indentified. If LV function is below 40, please consider prescribing an ACEI or ARB or document rationale for non-use. PROCEDURE DATA STUDY STATUS: Elective. Procedure: Transthoracic echocardiography. Image quality was good. Scanning was performed from the parasternal, apical, and subcostal acoustic windows. Study completion: The patient tolerated the procedure well. Transthoracic echocardiography. M-mode, complete 2D, complete spectral Doppler, and color Doppler. Patient status: Inpatient. CARDIAC ANATOMY LEFT VENTRICLE: The cavity size was normal. Wall thickness was normal. Systolic function was normal. The estimated ejection fraction was in the range of 55% to 60%. Wall motion was normal; there were no regional wall motion abnormalities. AORTIC VALVE: Trileaflet; normal thickness leaflets. Doppler: Transvalvular velocity was within the normal range. There was no stenosis. No regurgitation. AORTA: Aortic root: The aortic root was normal in size. MITRAL VALVE: Structurally normal valve. Doppler: Transvalvular velocity was within the normal range. There was no evidence for stenosis. No regurgitation. LEFT ATRIUM: The atrium was normal in size. RIGHT VENTRICLE: The cavity size was normal. Wall thickness was normal. PULMONIC VALVE: Doppler: Transvalvular velocity was within the normal range. There was no evidence for stenosis. No regurgitation. TRICUSPID VALVE: Structurally normal valve. Doppler: Transvalvular velocity was within the normal range. No regurgitation. PULMONARY ARTERY: The main pulmonary artery was normal-sized. Systolic pressure was within the normal range. RIGHT ATRIUM: The atrium was normal in size. PERICARDIUM: There was no pericardial effusion. SYSTEMIC VEINS: Inferior vena cava: The vessel was normal in size. BASIC MEASUREMENTS ADULT Normal Left ventricle LV internal dimension, ED, chordal level, 43.3 mm 43-52 PLAX LV internal dimension, ES, chordal level, 30.3 mm 23-38 PLAX Fractional shortening, chordal level, PLAX 30 % >29 LV posterior wall thickness, ED 9.76 mm IVS/LVPW ratio, ED *1.49 <1.3 Ventricular septum Septal thickness, ED 14.5 mm Aortic valve Leaflet separation 18 mm 15-26 Right ventricle RV internal dimension, ED, PLAX 26.1 mm 19-38 BASIC MEASUREMENTS ADULT Normal Aortic valve Leaflet separation 18 mm 15-26 Aorta Root diameter, ED 36 mm 20-37 Left atrium Anterior-posterior dimension, ES 32 mm 19-40 LA/aortic root ratio 0.89 DOPPLER MEASUREMENTS ADULT Normal Main pulmonary artery Pressure, S *40 mm Hg =30 Tricuspid valve Regurgitant peak velocity 235 cm/s Peak RV-RA gradient, S 22 mm Hg Maximal regurgitant velocity 235 cm/s Systemic veins Estimated CVP 10 mm Hg Right ventricle RV pressure, S *40 mm Hg <30 LEGEND: Mean values are shown as u=mean value. Asterisk (*) garcia values outside specified normal range. Prepared and signed by Faustino Liu [id number]
[2017-01-18 12:00] VITALS: BP 140/78; PULSE 70; RESP 16; TEMP 97; O2SAT 95
--- NOTE | 2017-01-18 13:13 | HHI.PR ---
Subjective Remarks The patient was feeling well. Her family was at the bedside. They're hoping to get her to rehabilitation today or tomorrow. The patient has not been enjoying the thickened liquids. She does not have any acute complaints at this time. The family was wondering if the patient had diabetes. Objective Vitals Vital Signs Date Time Temp Pulse Resp B/P Pulse Ox O2 Delivery O2 Flow Rate FiO2 01/18/17 08:00 98.2 66 16 145/84 95 01/18/17 04:00 98.2 66 16 134/76 95 01/18/17 00:00 98.8 71 16 147/80 94 01/17/17 20:00 69 01/17/17 20:00 97.2 69 18 147/83 95 01/17/17 16:00 98.0 70 17 151/86 97 I/O 01/17/17 01/17/17 01/17/17 01/18/17 01/18/17 01/18/17 07:00 15:00 23:00 07:00 15:00 23:00 Intake Total 1400 ml 440 ml 400 ml Output Total 2500 ml 2400 ml 1400 ml 300 ml Balance -2500 ml -1000 ml -960 ml 100 ml Intake Oral 1400 ml 440 ml 400 ml Output Urine Total 2500 ml 2400 ml 1400 ml 300 ml # Voids 1 # Bowel Movements 0 0 Result Diagram: 01/16/17 0609 01/17/17 0622 Imaging Last Impressions Head Magnetic Resonance Angiography 01/16/17 0000 Signed Impressions: Service Date/Time: Monday, January 16, 2017 12:23 - CONCLUSION: 1. Left MCA occlusion. Rich Esquivel MD Brain MRI 01/16/17 0000 Signed Impressions: Service Date/Time: Monday, January 16, 2017 12:23 - CONCLUSION: 1. Evolving left as noted above. No hemorrhage or midline shift appreciated. Rich Esquivel MD Head CT 01/15/17 1407 Signed Impressions: Service Date/Time: Sunday, January 15, 2017 14:16 - CONCLUSION: 1. Scattered areas of encephalomalacia in the left cerebral hemisphere characteristic of a probable subacute or chronic embolic event to the left MCA territory. 2. No acute intracranial hemorrhage or midline shift. 3. Results were called to Dr. Perez in the ED at the time of this dictation Filiberto Mccabe MD Chest X-Ray 01/15/17 0000 Signed Impressions: Service Date/Time: Sunday, January 15, 2017 16:50 - CONCLUSION: No acute disease. Mustapha Schmidt MD Carotid Artery Ultrasound 01/15/17 0000 Signed Impressions: Service Date/Time: Sunday, January 15, 2017 17:12 - CONCLUSION: No evidence of hemodynamically significant lesion. Js Cabrera MD Objective Remarks GENERAL: Well-nourished, well-developed patient in NAD. SKIN: Focused skin assessment reveals no rash and nodules. Skin is warm and dry. HEAD: Atraumatic. Normocephalic. EYES: Pupils equal and round. No scleral icterus. No injection or drainage. ENT: No nasal bleeding or discharge. Mucous membranes pink and moist. NECK: Trachea midline. No JVD. CARDIOVASCULAR: Regular rate and rhythm. No murmur appreciated. RESPIRATORY: No accessory muscle use. Clear to auscultation. Breath sounds equal bilaterally. GASTROINTESTINAL: Abdomen soft, non-tender, nondistended. Hepatic and splenic margins not palpable. MUSCULOSKELETAL: No obvious deformities. No clubbing. No cyanosis. No edema. NEUROLOGICAL: Awake and looking around. She follows some commands. No obvious cranial nerve deficits. No facial droop. She is aphasic. RUE/ RLE 4/5 strength, other extremities 5/5 strength. Sensation seems intact. PSYCHIATRIC: Mood and affect appropriate. Medications and IVs Current Medications Medications (Trade) Dose Ordered Sig/Shamika Route Start Time Stop Time Status Last Admin (Tylenol) 650 mg Q4H PRN PO 01/15/17 15:15 01/17/17 12:05 (Tylenol) 650 mg Q6H PRN PO 01/15/17 15:15 01/17/17 00:04 (Narcan Inj) 0.4 mg UNSCH PRN IV 01/15/17 15:15 (NS Flush) 2 ml BID IV FLUSH 01/15/17 21:00 01/18/17 09:00 (NS Flush) 2 ml UNSCH PRN IV FLUSH 01/15/17 18:45 (Aspirin) 325 mg DAILY PO 01/15/17 19:00 01/18/17 08:59 (Lipitor) 10 mg HS PO 01/15/17 21:00 01/17/17 20:47 (D50w (Vial) Inj) 25 ml UNSCH PRN IV PUSH 01/15/17 18:45 (Glucagon Inj) 1 mg UNSCH PRN IM/SQ 01/15/17 18:45 (Vasotec Inj) 1.25 mg Q6H PRN IV PUSH 01/16/17 21:30 (Lovenox Inj) 40 mg Q24H SQ 01/17/17 09:00 01/18/17 08:59 (Prinivil) 20 mg DAILY PO 01/17/17 09:00 01/18/17 09:00 (Colace) 100 mg BID PO 01/17/17 21:00 01/18/17 09:00 (Senokot) 17.2 mg DAILY PO 01/17/17 15:00 01/18/17 09:00 A/P Assessment and Plan Acute CVA/ Hypertensive Emergency The patient presented to the hospital with speech difficulties and right upper extremity weakness. CT scan in the emergency department showed: Scattered areas of encephalomalacia in the left cerebral hemisphere characteristic of a probable subacute or chronic embolic event to the left MCA territory; No acute intracranial hemorrhage or midline shift. The pt's SBP was noted to be 200 in the ED. She smokes cigarettes and does use recreational cocaine per family. LDL 118. Carotid US unremarkable. Neurology consult appreciated. A1c 5.4%. MRA with left MCA occlusion. Echo unremarkable. Holter monitor with sinus rhythm. - change activity to OOB w/ assist. - start lisinopril 20 mg daily. Vasotec as needed. Blood pressure improved. - Smoking cessation instruction. - B12 injection x 1. - PT/ OT/ ST. - case management consult. - started aspirin and statin. - rehab medicine consult. - hypercoagulable work-up per neurology. Leukocytosis May be a stress reaction secondary to above. CXR and UA unremarkable. Resolved. - Follow CBC as needed. Hypokalemia Likely secondary to decreased by mouth intake. - Replete and monitor. Hypernatremia Sodium level increased. - improved with 1/2 normal saline. PPx: Lovenox. Discharge Planning Will need rehab when cleared by neuro. Mustapha Paul DO January 18, 2017 13:13
[2017-01-18 16:00] VITALS: BP 139/77; PULSE 68; RESP 16; TEMP 97.8; O2SAT 95
[2017-01-18 20:00] VITALS: BP 142/80; PULSE 70; RESP 18; TEMP 98.6; O2SAT 100
[2017-01-18] MEDS: ATORVASTATIN 10 MG TAB PO SCH (21:37)
[2017-01-19] VITALS (7 sets, daily range): BP systolic 110–141; BP diastolic 64–77; PULSE 66–73; RESP 16–20; TEMP 97.3–98.6; O2SAT 95–99
[2017-01-19] MEDS: INSULIN ASPART SUPPLEMENTAL SCALE SQ SCH ×4 (06:14→20:08)
[2017-01-19] MEDS: SENNOSIDES 8.6 MG TAB PO SCH (09:00)
[2017-01-19] MEDS: SODIUM CHLORIDE 0.9% FLUSH 10 ML FLUSH IV FLUSH SCH ×2 (09:00→20:09)
[2017-01-19] MEDS: DOCUSATE SODIUM 100 MG CAP PO SCH ×2 (09:00→20:09)
[2017-01-19] MEDS: LISINOPRIL 20 MG TAB PO SCH (10:14)
[2017-01-19] MEDS: ASPIRIN 325 MG TAB PO SCH (10:14)
[2017-01-19] MEDS: ENOXAPARIN SODIUM 40 MG/0.4 ML SYRINGE SQ SCH (10:15)
--- NOTE | 2017-01-19 12:23 | HHI.PR ---
Subjective Remarks The patient stated that she cannot move her right arm or right leg. Otherwise she had no acute complaints. She was minimally verbal. Daughter at the bedside. Discussed with case management. Objective Vitals Vital Signs Date Time Temp Pulse Resp B/P Pulse Ox O2 Delivery O2 Flow Rate FiO2 01/19/17 08:00 97.6 67 16 141/76 95 01/19/17 04:00 98.2 67 18 117/66 96 01/19/17 00:00 98.2 73 18 128/76 99 01/18/17 20:00 98.6 70 18 142/80 100 01/18/17 16:00 97.8 68 16 139/77 95 I/O 01/18/17 01/18/17 01/18/17 01/19/17 01/19/17 01/19/17 07:00 15:00 23:00 07:00 15:00 23:00 Intake Total 400 ml 530 ml Output Total 300 ml 1000 ml 350 ml Balance 100 ml -470 ml -350 ml Intake Oral 400 ml 530 ml Output Urine Total 300 ml 1000 ml 350 ml # Bowel Movements 0 2 0 Result Diagram: 01/16/17 0609 01/17/17 0622 Imaging Last Impressions Head Magnetic Resonance Angiography 01/16/17 0000 Signed Impressions: Service Date/Time: Monday, January 16, 2017 12:23 - CONCLUSION: 1. Left MCA occlusion. Rich Esquivel MD Brain MRI 01/16/17 0000 Signed Impressions: Service Date/Time: Monday, January 16, 2017 12:23 - CONCLUSION: 1. Evolving left as noted above. No hemorrhage or midline shift appreciated. Rich Esquivel MD Head CT 01/15/17 1407 Signed Impressions: Service Date/Time: Sunday, January 15, 2017 14:16 - CONCLUSION: 1. Scattered areas of encephalomalacia in the left cerebral hemisphere characteristic of a probable subacute or chronic embolic event to the left MCA territory. 2. No acute intracranial hemorrhage or midline shift. 3. Results were called to Dr. Perez in the ED at the time of this dictation Filiberto Mccabe MD Chest X-Ray 01/15/17 0000 Signed Impressions: Service Date/Time: Sunday, January 15, 2017 16:50 - CONCLUSION: No acute disease. Mustapha Schmidt MD Carotid Artery Ultrasound 01/15/17 0000 Signed Impressions: Service Date/Time: Sunday, January 15, 2017 17:12 - CONCLUSION: No evidence of hemodynamically significant lesion. Js Cabrera MD Objective Remarks GENERAL: Well-nourished, well-developed patient in NAD. SKIN: Focused skin assessment reveals no rash and nodules. Skin is warm and dry. HEAD: Atraumatic. Normocephalic. EYES: Pupils equal and round. No scleral icterus. No injection or drainage. ENT: No nasal bleeding or discharge. Mucous membranes pink and moist. NECK: Trachea midline. No JVD. CARDIOVASCULAR: Regular rate and rhythm. No murmur appreciated. RESPIRATORY: No accessory muscle use. Clear to auscultation. Breath sounds equal bilaterally. GASTROINTESTINAL: Abdomen soft, non-tender, nondistended. Hepatic and splenic margins not palpable. MUSCULOSKELETAL: No obvious deformities. No clubbing. No cyanosis. No edema. NEUROLOGICAL: Awake and looking around. She follows some commands. No obvious cranial nerve deficits. No facial droop. She is aphasic. RUE/ RLE 2/5 strength, other extremities 5/5 strength. Sensation seems intact. PSYCHIATRIC: Flattened affect. Medications and IVs Current Medications Medications (Trade) Dose Ordered Sig/Shamika Route Start Time Stop Time Status Last Admin (Tylenol) 650 mg Q4H PRN PO 01/15/17 15:15 01/17/17 12:05 (Tylenol) 650 mg Q6H PRN PO 01/15/17 15:15 01/17/17 00:04 (Narcan Inj) 0.4 mg UNSCH PRN IV 01/15/17 15:15 (NS Flush) 2 ml BID IV FLUSH 01/15/17 21:00 01/19/17 09:00 (NS Flush) 2 ml UNSCH PRN IV FLUSH 01/15/17 18:45 (Aspirin) 325 mg DAILY PO 01/15/17 19:00 01/19/17 10:14 (Lipitor) 10 mg HS PO 01/15/17 21:00 01/18/17 21:37 (D50w (Vial) Inj) 25 ml UNSCH PRN IV PUSH 01/15/17 18:45 (Glucagon Inj) 1 mg UNSCH PRN IM/SQ 01/15/17 18:45 (Vasotec Inj) 1.25 mg Q6H PRN IV PUSH 01/16/17 21:30 (Lovenox Inj) 40 mg Q24H SQ 01/17/17 09:00 01/19/17 10:15 (Prinivil) 20 mg DAILY PO 01/17/17 09:00 01/19/17 10:14 (Colace) 100 mg BID PO 01/17/17 21:00 01/18/17 09:00 (Senokot) 17.2 mg DAILY PO 01/17/17 15:00 01/18/17 09:00 A/P Assessment and Plan Acute CVA/ Hypertensive Emergency The patient presented to the hospital with speech difficulties and right upper extremity weakness. CT scan in the emergency department showed: Scattered areas of encephalomalacia in the left cerebral hemisphere characteristic of a probable subacute or chronic embolic event to the left MCA territory; No acute intracranial hemorrhage or midline shift. The pt's SBP was noted to be 200 in the ED. She smokes cigarettes and does use recreational cocaine per family. LDL 118. Carotid US unremarkable. Neurology consult appreciated. A1c 5.4%. MRA with left MCA occlusion. Echo unremarkable. Holter monitor with sinus rhythm. - change activity to OOB w/ assist. - start lisinopril 20 mg daily. Vasotec as needed. Blood pressure improved. - Smoking cessation instruction. - B12 injection x 1. - PT/ OT/ ST. - case management consult. Working on discharge to either acute rehab or SNF near pt's family. - started aspirin and statin. - rehab medicine consult. - hypercoagulable work-up per neurology. Leukocytosis May be a stress reaction secondary to above. CXR and UA unremarkable. Resolved. - Follow CBC as needed. Hypokalemia Likely secondary to decreased by mouth intake. - Replete and monitor. Hypernatremia Sodium level increased. - improved with 1/2 normal saline. PPx: Lovenox. Discharge Planning Awaiting placement. Mustapha Paul DO January 19, 2017 12:23
[2017-01-19] MEDS ORDERED: ASPI325T PO (13:58)
[2017-01-19] MEDS ORDERED: LIPI10TA PO (13:58)
[2017-01-19] MEDS ORDERED: LISI-515 PO (13:58)
[2017-01-19] MEDS ORDERED: DOCU1CAP39 PO (13:58)
--- NOTE | 2017-01-19 13:58 | HHI.DCPOC ---
Discharge Care Plan Diagnosis: (1) Hypertensive urgency (2) Ischemic cerebrovascular accident (CVA) of frontal lobe Goals to Promote Your Health * To prevent worsening of your condition and complications * To maintain your health at the optimal level Directions to Meet Your Goals Take your medications as prescribed Follow your dietary instruction Follow activity as directed Keep your appointments as scheduled Take your immunizations and boosters as scheduled If your symptoms worsen call your PCP, if no PCP go to Urgent Care Center or Emergency Room Smoking is Dangerous to Your Health. Avoid second hand smoke Call the 24-hour hour crisis hotline for domestic abuse at Mustapha Paul DO January 19, 2017 13:58
--- NOTE | 2017-01-19 14:09 | HHI.DS ---
Discharge Summary Admission Date Jan 15, 2017 at 15:09 Discharge Date: January 21, 2017 Admitting Diagnosis ischemic CVA,hypertensive urgency (1) Hypertensive urgency ICD Code: I16.0 Diagnosis: Principal (2) Ischemic cerebrovascular accident (CVA) of frontal lobe ICD Code: I63.9 Diagnosis: Principal Procedures None. Brief History - From Admission The patient is a 56-year-old female who was brought into the hospital by her family for concerns about altered speech. The patient is visiting from the [facility] for Jeep week. Over the past 5 days the patient has had changes of behavior per the patient's family. It wasn't until this morning that it was obvious that the patient's speech was altered. The family states that the patient was saying weird things and has been having trouble saying what she was meaning to say. The ambulance came by this morning and the patient was refusing treatment. The patient's family states that the patient does not like to be checked up regularly by doctors. The patient was resting in bed but was not very conversant. She would say 1 or 2 words at a time. She did not seem to indicate that she was in any pain. The patient's daughter who was at the bedside was unable to elaborate on the patient's symptoms for the past few days. She does say that other family members noticed the patient acting strangely but was unable to be more specific about that. The patient did seem to indicate she was itching and had a burning sensation in her right hand. CBC/BMP: 01/16/17 0609 01/17/17 0622 Significant Findings Laboratory Tests Test 01/17/17 06:22 Blood Urea Nitrogen 3 MG/DL (7-18) Estimat Glomerular Filtration 82 ML/MIN (>89) Rate Calcium Level 8.2 MG/DL (8.5-10.1) Imaging Last Impressions Head Magnetic Resonance Angiography 01/16/17 0000 Signed Impressions: Service Date/Time: Monday, January 16, 2017 12:23 - CONCLUSION: 1. Left MCA occlusion. Rich Esquivel MD Brain MRI 01/16/17 0000 Signed Impressions: Service Date/Time: Monday, January 16, 2017 12:23 - CONCLUSION: 1. Evolving left as noted above. No hemorrhage or midline shift appreciated. Rich Esquivel MD Head CT 01/15/17 1407 Signed Impressions: Service Date/Time: Sunday, January 15, 2017 14:16 - CONCLUSION: 1. Scattered areas of encephalomalacia in the left cerebral hemisphere characteristic of a probable subacute or chronic embolic event to the left MCA territory. 2. No acute intracranial hemorrhage or midline shift. 3. Results were called to Dr. Perez in the ED at the time of this dictation Filiberto Mccabe MD Chest X-Ray 01/15/17 0000 Signed Impressions: Service Date/Time: Sunday, January 15, 2017 16:50 - CONCLUSION: No acute disease. Mustapha Schmidt MD Carotid Artery Ultrasound 01/15/17 0000 Signed Impressions: Service Date/Time: Sunday, January 15, 2017 17:12 - CONCLUSION: No evidence of hemodynamically significant lesion. Js Cabrera MD PE at Discharge GENERAL: Well-nourished, well-developed patient in [facility]. SKIN: Focused skin assessment reveals no rash and nodules. Skin is warm and dry. HEAD: Atraumatic. Normocephalic. EYES: Pupils equal and round. No scleral icterus. No injection or drainage. ENT: No nasal bleeding or discharge. Mucous membranes pink and moist. NECK: Trachea midline. No JVD. CARDIOVASCULAR: Regular rate and rhythm. No murmur appreciated. RESPIRATORY: No accessory muscle use. Clear to auscultation. Breath sounds equal bilaterally. GASTROINTESTINAL: Abdomen soft, non-tender, nondistended. Hepatic and splenic margins not palpable. MUSCULOSKELETAL: No obvious deformities. No clubbing. No cyanosis. No edema. NEUROLOGICAL: Awake and looking around. She follows some commands. No obvious cranial nerve deficits. No facial droop. She is aphasic. RUE/ RLE 2/5 strength, other extremities 5/5 strength. Sensation seems intact. PSYCHIATRIC: Flattened affect. Hospital Course Acute CVA/ Hypertensive Emergency The patient presented to the hospital with speech difficulties and right upper extremity weakness. CT scan in the emergency department showed: Scattered areas of encephalomalacia in the left cerebral hemisphere characteristic of a probable subacute or chronic embolic event to the left MCA territory; No acute intracranial hemorrhage or midline shift. The pt's SBP was noted to be 200 in the ED. She smokes cigarettes and does use recreational cocaine per family. LDL 118. Carotid US and echo unremarkable. Neurology was consulted. A1c 5.4%. MRA with left MCA occlusion. Holter monitor with sinus rhythm. We changed activity from bedrest to OOB w/ assist. We started lisinopril 20 mg daily. She received Vasotec as needed. She received smoking cessation instruction. She received a vitamin B12 injection x 1. She worked with PT/ OT/ ST. Case management was consulted. She was started on aspirin and a statin. Rehab medicine was consulted. Hypercoagulable work-up was ordered. She will follow up with neurology as an outpt. Pt Condition on Discharge: Stable Discharge Disposition: Rehab Inpatient Discharge Time: > 30 minutes Discharge Instructions DIET: Follow Instructions for: Heart Healthy Diet Activities you can perform: Weight Bearing as Keith Follow up Referrals: Neurology - 2 Weeks with Francesco De Los Santos PhD MD PCP Follow-up - 1 Week New Orders: VITAMIN B12 - 2 Weeks New Medications: Aspirin (Aspirin) 325 Mg Tab 325 MG PO DAILY CVA #30 TAB Atorvastatin (Lipitor) 10 Mg Tab 10 MG PO HS Cholesterol Management #30 TAB Docusate Sodium (Dok) 100 Mg Cap 100 MG PO BID Constipation #60 CAP Lisinopril (Lisinopril) 20 Mg Tab 20 MG PO DAILY Blood Pressure Management #30 TAB Mustapha Paul DO January 19, 2017 14:08
[2017-01-19 16:28] LABS: POTASSIUM 3.8 MEQ/L (3.5-5.1)
[2017-01-19 16:31] LABS: BICARBONATE 28.9 MEQ/L (21.0-32.0)
[2017-01-19] MEDS: ATORVASTATIN 10 MG TAB PO SCH (20:08)
[2017-01-20] VITALS: BP 133/84; PULSE 70; RESP 18; TEMP 97; O2SAT 97
[2017-01-20 04:00] VITALS: BP 136/74; PULSE 65; RESP 20; TEMP 96.6; O2SAT 95
[2017-01-20] MEDS: INSULIN ASPART SUPPLEMENTAL SCALE SQ SCH ×3 (06:03→16:00)
[2017-01-20 08:00] VITALS: BP 133/71; PULSE 64; RESP 20; TEMP 97.2; O2SAT 94
[2017-01-20] MEDS: ASPIRIN 325 MG TAB PO SCH (10:00)
[2017-01-20] MEDS: SENNOSIDES 8.6 MG TAB PO SCH (10:00)
[2017-01-20] MEDS: LISINOPRIL 20 MG TAB PO SCH (10:00)
[2017-01-20] MEDS: ENOXAPARIN SODIUM 40 MG/0.4 ML SYRINGE SQ SCH (10:00)
[2017-01-20] MEDS: DOCUSATE SODIUM 100 MG CAP PO SCH ×2 (10:00→20:45)
[2017-01-20] MEDS: SODIUM CHLORIDE 0.9% FLUSH 10 ML FLUSH IV FLUSH SCH ×2 (10:01→20:46)
[2017-01-20 12:00] VITALS: BP 142/76; PULSE 68; RESP 20; TEMP 97.7; O2SAT 99
--- NOTE | 2017-01-20 12:53 | HHI.PR ---
Subjective Remarks The patient was feeling well. Her daughter was at the bedside. The patient's daughter stated that the patient got accepted to acute rehabilitation close to home. The patient denied any acute complaints. She was still unable to move her right arm. Objective Vitals Vital Signs Date Time Temp Pulse Resp B/P Pulse Ox O2 Delivery O2 Flow Rate FiO2 01/20/17 08:00 97.2 64 20 133/71 94 01/20/17 04:00 96.6 65 20 136/74 95 01/20/17 00:00 97.0 70 18 133/84 97 01/19/17 23:24 68 01/19/17 20:00 98.2 68 20 136/71 97 01/19/17 16:00 97.3 70 18 128/77 96 I/O 01/19/17 01/19/17 01/19/17 01/20/17 01/20/17 01/20/17 07:00 15:00 23:00 07:00 15:00 23:00 Intake Total 300 ml 110 ml Output Total 350 ml 1550 ml 350 ml Balance -350 ml -1250 ml -240 ml Intake Oral 300 ml 110 ml Output Urine Total 350 ml 1550 ml 350 ml # Bowel Movements 0 0 0 Result Diagram: 01/16/17 0609 01/19/17 1610 Imaging Last Impressions Head Magnetic Resonance Angiography 01/16/17 0000 Signed Impressions: Service Date/Time: Monday, January 16, 2017 12:23 - CONCLUSION: 1. Left MCA occlusion. Rich Esquivel MD Brain MRI 01/16/17 0000 Signed Impressions: Service Date/Time: Monday, January 16, 2017 12:23 - CONCLUSION: 1. Evolving left as noted above. No hemorrhage or midline shift appreciated. Rich Esquivel MD Head CT 01/15/17 1407 Signed Impressions: Service Date/Time: Sunday, January 15, 2017 14:16 - CONCLUSION: 1. Scattered areas of encephalomalacia in the left cerebral hemisphere characteristic of a probable subacute or chronic embolic event to the left MCA territory. 2. No acute intracranial hemorrhage or midline shift. 3. Results were called to Dr. Perez in the ED at the time of this dictation Filiberto Mccabe MD Chest X-Ray 01/15/17 0000 Signed Impressions: Service Date/Time: Sunday, January 15, 2017 16:50 - CONCLUSION: No acute disease. Mustapha Schmidt MD Carotid Artery Ultrasound 01/15/17 0000 Signed Impressions: Service Date/Time: Sunday, January 15, 2017 17:12 - CONCLUSION: No evidence of hemodynamically significant lesion. Js Cabrera MD Objective Remarks GENERAL: Well-nourished, well-developed patient in NAD. SKIN: Focused skin assessment reveals no rash and nodules. Skin is warm and dry. HEAD: Atraumatic. Normocephalic. EYES: Pupils equal and round. No scleral icterus. No injection or drainage. ENT: No nasal bleeding or discharge. Mucous membranes pink and moist. NECK: Trachea midline. No JVD. CARDIOVASCULAR: Regular rate and rhythm. No murmur appreciated. RESPIRATORY: No accessory muscle use. Clear to auscultation. Breath sounds equal bilaterally. GASTROINTESTINAL: Abdomen soft, non-tender, nondistended. Hepatic and splenic margins not palpable. MUSCULOSKELETAL: No obvious deformities. No clubbing. No cyanosis. No edema. NEUROLOGICAL: Awake and looking around. She follows some commands. No obvious cranial nerve deficits. No facial droop. She is aphasic. RUE/ RLE 2/5 strength, other extremities 5/5 strength. Sensation seems intact. PSYCHIATRIC: Slightly flattened affect. Procedures None. Medications and IVs Current Medications Medications (Trade) Dose Ordered Sig/Shamika Route Start Time Stop Time Status Last Admin (Tylenol) 650 mg Q4H PRN PO 01/15/17 15:15 01/17/17 12:05 (Tylenol) 650 mg Q6H PRN PO 01/15/17 15:15 01/17/17 00:04 (Narcan Inj) 0.4 mg UNSCH PRN IV 01/15/17 15:15 (NS Flush) 2 ml BID IV FLUSH 01/15/17 21:00 01/20/17 10:01 (NS Flush) 2 ml UNSCH PRN IV FLUSH 01/15/17 18:45 (Aspirin) 325 mg DAILY PO 01/15/17 19:00 01/20/17 10:00 (Lipitor) 10 mg HS PO 01/15/17 21:00 01/19/17 20:08 (D50w (Vial) Inj) 25 ml UNSCH PRN IV PUSH 01/15/17 18:45 (Glucagon Inj) 1 mg UNSCH PRN IM/SQ 01/15/17 18:45 (Vasotec Inj) 1.25 mg Q6H PRN IV PUSH 01/16/17 21:30 (Lovenox Inj) 40 mg Q24H SQ 01/17/17 09:00 01/20/17 10:00 (Prinivil) 20 mg DAILY PO 01/17/17 09:00 01/20/17 10:00 (Colace) 100 mg BID PO 01/17/17 21:00 01/20/17 10:00 (Senokot) 17.2 mg DAILY PO 01/17/17 15:00 01/20/17 10:00 A/P Problem List: (1) Hypertensive urgency ICD Code: I16.0 Status: Acute (2) Ischemic cerebrovascular accident (CVA) of frontal lobe ICD Code: I63.9 Status: Acute Assessment and Plan Acute CVA/ Hypertensive Emergency The patient presented to the hospital with speech difficulties and right upper extremity weakness. CT scan in the emergency department showed: Scattered areas of encephalomalacia in the left cerebral hemisphere characteristic of a probable subacute or chronic embolic event to the left MCA territory; No acute intracranial hemorrhage or midline shift. The pt's SBP was noted to be 200 in the ED. She smokes cigarettes and does use recreational cocaine per family. LDL 118. Carotid US unremarkable. Neurology consult appreciated. A1c 5.4%. MRA with left MCA occlusion. Echo unremarkable. Holter monitor with sinus rhythm. - change activity to OOB w/ assist. - start lisinopril 20 mg daily. Vasotec as needed. Blood pressure improved. - Smoking cessation instruction. - B12 injection x 1. - PT/ OT/ ST. - case management consult appreciated. Anticipate discharge to acute rehabilitation once authorization received. - started aspirin and statin. - rehab medicine consult. - hypercoagulable work-up per neurology. Leukocytosis May be a stress reaction secondary to above. CXR and UA unremarkable. Resolved. - Follow CBC as needed. Hypokalemia Likely secondary to decreased by mouth intake. - Replete and monitor. Hypernatremia Sodium level increased. - improved with 1/2 normal saline. PPx: Lovenox. Discharge Planning Discharge to acute rehabilitation facility once authorization received. Mustapha Pual DO January 20, 2017 12:53
[2017-01-20 16:00] VITALS: BP 142/71; PULSE 66; RESP 20; TEMP 97.4; O2SAT 97
[2017-01-20 17:51] LABS: THROMBIN TIME FOR LA ND sec (13-19)
[2017-01-20 20:00] VITALS: BP 148/80; PULSE 70; PULSE 75; RESP 20; TEMP 98.7; O2SAT 96
[2017-01-20] MEDS: ATORVASTATIN 10 MG TAB PO SCH (20:45)
[2017-01-21] VITALS: BP 119/70; PULSE 66; RESP 20; TEMP 97.5; O2SAT 96
[2017-01-21 04:00] VITALS: BP 130/76; PULSE 67; RESP 20; TEMP 98.9; O2SAT 96
[2017-01-21 08:00] VITALS: BP 124/76; PULSE 65; RESP 18; TEMP 98.2; O2SAT 96
[2017-01-21] MEDS: SENNOSIDES 8.6 MG TAB PO SCH (08:14)
[2017-01-21] MEDS: LISINOPRIL 20 MG TAB PO SCH (08:14)
[2017-01-21] MEDS: ASPIRIN 325 MG TAB PO SCH (08:14)
[2017-01-21] MEDS: DOCUSATE SODIUM 100 MG CAP PO SCH (08:14)
[2017-01-21] MEDS: ENOXAPARIN SODIUM 40 MG/0.4 ML SYRINGE SQ SCH (08:14)
--- NOTE | 2017-01-21 08:51 | HHI.PR ---
Subjective Remarks The patient was feeling well and had no acute complaints. Her daughter was at the bedside. Arrangements were being made to send patient to acute rehabilitation at 10 AM. Discussed with nursing and case management. Objective Vitals Vital Signs Date Time Temp Pulse Resp B/P Pulse Ox O2 Delivery O2 Flow Rate FiO2 01/21/17 08:00 98.2 65 18 124/76 96 01/21/17 04:00 98.9 67 20 130/76 96 01/21/17 00:00 97.5 66 20 119/70 96 01/20/17 20:00 98.7 75 20 148/80 96 01/20/17 20:00 70 01/20/17 16:00 97.4 66 20 142/71 97 01/20/17 12:00 97.7 68 20 142/76 99 I/O 01/20/17 01/20/17 01/20/17 01/21/17 01/21/17 01/21/17 07:00 15:00 23:00 07:00 15:00 23:00 Intake Total 110 ml 550 ml 60 ml 60 ml Output Total 350 ml 1300 ml 1150 ml 175 ml Balance -240 ml -750 ml -1090 ml -115 ml Intake Oral 110 ml 550 ml 60 ml 60 ml Output Urine Total 350 ml 1300 ml 1150 ml 175 ml # Bowel Movements 0 1 0 Result Diagram: 01/19/17 1610 Imaging Last Impressions Head Magnetic Resonance Angiography 01/16/17 0000 Signed Impressions: Service Date/Time: Monday, January 16, 2017 12:23 - CONCLUSION: 1. Left MCA occlusion. Rich Esquivel MD Brain MRI 01/16/17 0000 Signed Impressions: Service Date/Time: Monday, January 16, 2017 12:23 - CONCLUSION: 1. Evolving left as noted above. No hemorrhage or midline shift appreciated. Rich Esquivel MD Head CT 01/15/17 1407 Signed Impressions: Service Date/Time: Sunday, January 15, 2017 14:16 - CONCLUSION: 1. Scattered areas of encephalomalacia in the left cerebral hemisphere characteristic of a probable subacute or chronic embolic event to the left MCA territory. 2. No acute intracranial hemorrhage or midline shift. 3. Results were called to Dr. Perez in the ED at the time of this dictation Filiberto Mccabe MD Chest X-Ray 01/15/17 0000 Signed Impressions: Service Date/Time: Sunday, January 15, 2017 16:50 - CONCLUSION: No acute disease. Mustapha Schmidt MD Carotid Artery Ultrasound 01/15/17 0000 Signed Impressions: Service Date/Time: Sunday, January 15, 2017 17:12 - CONCLUSION: No evidence of hemodynamically significant lesion. Js Cabrera MD Objective Remarks GENERAL: Well-nourished, well-developed patient in NAD. SKIN: Focused skin assessment reveals no rash and nodules. Skin is warm and dry. HEAD: Atraumatic. Normocephalic. EYES: Pupils equal and round. No scleral icterus. No injection or drainage. ENT: No nasal bleeding or discharge. Mucous membranes pink and moist. NECK: Trachea midline. No JVD. CARDIOVASCULAR: Regular rate and rhythm. No murmur appreciated. RESPIRATORY: No accessory muscle use. Clear to auscultation. Breath sounds equal bilaterally. GASTROINTESTINAL: Abdomen soft, non-tender, nondistended. Hepatic and splenic margins not palpable. MUSCULOSKELETAL: No obvious deformities. No clubbing. No cyanosis. No edema. NEUROLOGICAL: Awake and looking around. She follows some commands. No obvious cranial nerve deficits. No facial droop. She is aphasic. RUE/ RLE 2/5 strength, other extremities 5/5 strength. Sensation seems intact. PSYCHIATRIC: Slightly flattened affect. Procedures None. Medications and IVs Current Medications Medications (Trade) Dose Ordered Sig/Shamika Route Start Time Stop Time Status Last Admin (Tylenol) 650 mg Q4H PRN PO 01/15/17 15:15 01/17/17 12:05 (Tylenol) 650 mg Q6H PRN PO 01/15/17 15:15 01/17/17 00:04 (Narcan Inj) 0.4 mg UNSCH PRN IV 01/15/17 15:15 (NS Flush) 2 ml BID IV FLUSH 01/15/17 21:00 01/20/17 20:46 (NS Flush) 2 ml UNSCH PRN IV FLUSH 01/15/17 18:45 (Aspirin) 325 mg DAILY PO 01/15/17 19:00 01/21/17 08:14 (Lipitor) 10 mg HS PO 01/15/17 21:00 01/20/17 20:45 (D50w (Vial) Inj) 25 ml UNSCH PRN IV PUSH 01/15/17 18:45 (Glucagon Inj) 1 mg UNSCH PRN IM/SQ 01/15/17 18:45 (Vasotec Inj) 1.25 mg Q6H PRN IV PUSH 01/16/17 21:30 (Lovenox Inj) 40 mg Q24H SQ 01/17/17 09:00 01/21/17 08:14 (Prinivil) 20 mg DAILY PO 01/17/17 09:00 01/21/17 08:14 (Colace) 100 mg BID PO 01/17/17 21:00 01/21/17 08:14 (Senokot) 17.2 mg DAILY PO 01/17/17 15:00 01/21/17 08:14 A/P Problem List: (1) Hypertensive urgency ICD Code: I16.0 Status: Acute (2) Ischemic cerebrovascular accident (CVA) of frontal lobe ICD Code: I63.9 Status: Acute Assessment and Plan Acute CVA/ Hypertensive Emergency The patient presented to the hospital with speech difficulties and right upper extremity weakness. CT scan in the emergency department showed: Scattered areas of encephalomalacia in the left cerebral hemisphere characteristic of a probable subacute or chronic embolic event to the left MCA territory; No acute intracranial hemorrhage or midline shift. The pt's SBP was noted to be 200 in the ED. She smokes cigarettes and does use recreational cocaine per family. LDL 118. Carotid US unremarkable. Neurology consult appreciated. A1c 5.4%. MRA with left MCA occlusion. Echo unremarkable. Holter monitor with sinus rhythm. - change activity to OOB w/ assist. - start lisinopril 20 mg daily. Vasotec as needed. Blood pressure improved. - Smoking cessation instruction. - B12 injection x 1. - PT/ OT/ ST. - case management consult appreciated. Anticipate discharge to acute rehabilitation once authorization received. - started aspirin and statin. - rehab medicine consult. - hypercoagulable work-up per neurology. - Outpatient follow-up with neurology. Leukocytosis May be a stress reaction secondary to above. CXR and UA unremarkable. Resolved. - Follow CBC as needed. Hypokalemia Likely secondary to decreased by mouth intake. - Replete and monitor. Hypernatremia Sodium level increased. - improved with 1/2 normal saline. PPx: Lovenox. Discharge Planning Discharge to acute rehabilitation facility. Mustapha Paul DO January 21, 2017 08:50
== END 2017-01-21 10:02 | disposition short-term general hospital (02) | DRG 65 ==
LOC: PHED 13:55 → PHEDA 15:09 → PH3A 16:06
PROVIDERS: ADMIT Hospitalist; ATTEND Hospitalist
DX: I63.512 Cerebral infarction due to unspecified occlusion or stenosis of left middle cerebral artery (principal); I16.1 Hypertensive emergency; E87.0 Hyperosmolality and hypernatremia; G81.91 Hemiplegia, unspecified affecting right dominant side; R47.01 Aphasia; I16.0 Hypertensive urgency; F17.210 Nicotine dependence, cigarettes, uncomplicated; E87.6 Hypokalemia
CPT/HCPCS: 70450; 70544; 70551; 71010; 80048; 80061; 80076; 80307; 81001; 81240; 81241; 82140; 82607; 82948; 83036; 83735; 84100; 84443; 85025; 85303; 85306; 85610; 85613; 85730; 86147; 93005; 93225; 93226; 93306; 93880; 96374; J1650; J3420; J3480; J7030